=== PATIENT | female | born 1990 | race Caucasian/White ===

== ENCOUNTER 2021-09-24 05:40 | Emergency (ER) | payer BC, MEDICAID ==
[~2021-09-24] VITALS: Ht 165.1 cm; Wt 77.8 kg
[2021-09-24 06:26] VITALS: BP 129/87
== END 2021-09-24 08:49 | disposition left against medical advice (07) ==
LOC: ER 05:40
DX: Z53.21 Procedure and treatment not carried out due to patient leaving prior to being seen by health care provider (principal); Z87.19 Personal history of other diseases of the digestive system